=== PATIENT | male | born 1960 | race Caucasian/White ===

== ENCOUNTER → 2019-07-04 12:33 | Outpatient (CLI) | payer OTHER, SELFPAY ==
--- NOTE | 2019-07-04 | DI.RAD.S_ITS ---
PROCEDURE: XR CHEST 2V INDICATIONS: Chronic obstructive pulmonary disease, unspecified TECHNIQUE: 2 views of the chest were acquired. COMPARISON: None. FINDINGS: Surgical changes and devices: Midline sternotomy wires, mediastinal surgical clips, and a prosthetic cardiac valve projects over the cardiac and mediastinal silhouettes. Additional surgical clips project over the right upper quadrant of the abdomen. Lungs and pleura: There are diffuse bilateral perihilar and bibasilar pulmonary opacities. No pneumothorax or pleural effusion. There are multiple rounded opacities projecting over the right perihilar region. Mediastinum: There is contour irregularity and increased prominence of the left mediastinal silhouette with increased prominence of the pulmonary vasculature bilaterally. Cardiac silhouette appears mildly widened. Bones and chest wall: Chronic-appearing fractures of the posterolateral right ribs noted. There is mild anterior wedging of a lower thoracic vertebral body. IMPRESSION: 1. Diffuse bilateral perihilar and bibasilar pulmonary opacities, which may represent atelectasis versus sequela of chronic lung disease in the appropriate clinical setting (with pneumonia thought less likely). 2. Contour irregularity and increased prominence of the left mediastinal silhouette; a CT of the chest with contrast is recommended to exclude an underlying mass or pulmonary artery abnormality. 3. Multiple rounded opacities projecting over the right hilar region may represent enlarged pulmonary vessels seen on end versus pulmonary nodules; these should also be evaluated on the CT of the chest recommended above. 4. Mild anterior wedging of a lower thoracic vertebral body is likely secondary to chronic degenerative change; correlation with point tenderness is suggested to exclude acute fracture. Dictated by: Washington Reyes M.D. on 07/04/2019 at 17:07 Approved by: Washington Reyes M.D. on 07/04/2019 at 17:41
--- NOTE | 2019-07-14 08:30 | PM.PFT.1 ---
Pulmonary Function Test Referral & Results Date Patient Seen: 07/04/19 Requesting provider: Michael Castro Results: The spirometry demonstrates an FVC of 3.40 L which is 69% of predicted. The FEV1 was measured at 2.24 L which is 60% of predicted. The FEV1/FVC ratio was 66 which is 86% of predicted. Following the administration of bronchodilator there was no appreciable change. Lung volumes show an SVC of 3.41 L which is 70% of predicted. The diffusing capacity was measured at 17.21 which is 52% of predicted. No hemoglobin value was provided, so no correction for potential anemia could be made, if appropriate. The maximum voluntary ventilation was slightly reduced Interpretation: This study demonstrates moderate obstructive lung disease based on reduction FEV1 and shape a flow volume loop. There is no evidence of benefit following bronchodilator There is also [id number] restrictive lung disease based on reduction in SVC There is also moderate reduction in diffusing capacity suggesting significant disease at the capillary alveolar level
== END ==
PROVIDERS: Visit Provider Orthopaedic Surgery
DX: J44.9 Chronic obstructive pulmonary disease, unspecified (principal)
CPT/HCPCS: 71046; 94060; 94726; 94729